=== PATIENT | female | born 1955 | race Caucasian/White ===

== ENCOUNTER → 2020-11-19 | Day surgery (SDC) | payer MEDICARE, OTHER ==
[~2020-11-19] VITALS: Ht 167.6 cm; Wt 73.5 kg
[~2020-11-19] MED LIST: CELEBREX **OUT100 MG PO; CYMBALTA 30MG C30 MG PO; NORCO 5-325 TA1 EACH PO; PRINIVIL10 MG PO; PROTONIX 40MG T40 MG PO; TOLTERODINE TART4 MG PO; ZOCOR20 MG PO
== END | disposition home or self-care (01) ==
LOC: FAS 08:29
DX: K52.9 Noninfective gastroenteritis and colitis, unspecified (principal); K21.9 Gastro-esophageal reflux disease without esophagitis; F32.9 Major depressive disorder, single episode, unspecified; M51.36 Other intervertebral disc degeneration, lumbar region; R79.89 Other specified abnormal findings of blood chemistry; I10 Essential (primary) hypertension; E78.00 Pure hypercholesterolemia, unspecified; M76.30 Iliotibial band syndrome, unspecified leg; M19.071 Primary osteoarthritis, right ankle and foot; K29.70 Gastritis, unspecified, without bleeding; M19.072 Primary osteoarthritis, left ankle and foot; M19.041 Primary osteoarthritis, right hand; M19.042 Primary osteoarthritis, left hand; M85.80 Other specified disorders of bone density and structure, unspecified site; G47.9 Sleep disorder, unspecified; E55.9 Vitamin D deficiency, unspecified; Z87.440 Personal history of urinary (tract) infections; Z88.5 Allergy status to narcotic agent; Z79.899 Other long term (current) drug therapy; Z79.1 Long term (current) use of non-steroidal anti-inflammatories (NSAID)
CPT/HCPCS: J2704; J7120